=== PATIENT | male | born 1990 | race Caucasian/White ===

== ENCOUNTER 2017-09-07 12:31 | Observation (INO) | payer OTHER ==
[~2017-09-07 12:31] MED LIST: SEROQUEL 100MG100 MG PO
--- NOTE | 2017-09-07 12:51 | ED GENERAL ADULT ---
History of Present Illness General Chief Complaint: ETOH/Drug Related Complaint Stated Complaint: TOOK 17 GABAPENTIN 600MG WACH Source: patient, family (mom/dad) Exam Limitations: clinical condition, intoxication Vital Signs & Intake/Output Vital Signs & Intake/Output Vital Signs Date Time Temp Pulse Resp B/P B/P Pulse O2 O2 Flow FiO2 Mean Ox Delivery Rate 09/08 0847 98.7 92 20 149/67 100 Room Air 09/08 0632 98.3 83 18 106/57 98 Room Air 09/08 0408 97.7 69 18 117/53 100 Room Air 09/08 0020 97.7 69 18 120/70 98 Room Air 09/07 2204 97.6 87 18 130/69 97 Room Air 09/07 2022 97.5 84 18 134/71 99 Room Air 09/07 1653 97.1 95 18 136/73 98 Room Air 09/07 1652 98.1 96 18 140/81 100 Room Air Room Air 09/07 1420 97.1 69 18 109/58 99 Room Air Room Air 09/07 1338 77 18 115/65 99 Room Air Room Air 09/07 1308 98 Room Air Room Air 09/07 1259 98.1 130 18 139/90 98 Room Air Room Air ED Intake and Output 09/08 0000 09/07 1200 Intake Total 1240 Output Total 600 Balance 640 Intake, IV 1000 Intake, Oral 240 Output, Urine 600 Patient 195 lb Weight Weight Reported by Patient Measurement Method Allergies Coded Allergies: NO KNOWN ALLERGIES (08/13/11) Reconcile Medications Quetiapine Fumarate (Seroquel) 100 MG TABLET 1 TAB PO QPM ANXIETY Triage Nurses Notes Reviewed? yes Onset: Abrupt Duration: day(s): (1), constant, continues in ED, getting worse Timing: single episode today Injury Environment: home Severity: moderate, severe No Modifying Factors: none HPI: 27-year-old male past medical history of opioid use disorder brought in by a months for possible drug overdose. Patient's mom reports that the patient is currently taking 40 mg of methadone daily. He is in process of tapering his methadone down and was prescribed 6600 mg gabapentin to help with anxiety and withdrawal symptoms. Patient was observed this morning by his parents active and very lethargic and slurring his words. It was determined that 17 of his gabapentin's were missing. Patient admits to taking more gabapentin then directed but is not very clear exactly how many he took. He also admits to taking 2MG Xanax. He denies any suicidal or homicidal ideation. No alcohol abuse. No history of withdrawal seizures. History is limited because of his intoxication. He denies any pain. No hallucinations. He does report associated anxiety. (Terrence Chatterjee) Past History Medical History Any Pertinent Medical History? see below for history Neurological: NONE EENT: NONE Cardiovascular: NONE Respiratory: NONE Gastrointestinal: NONE Hepatic: NONE Renal: NONE Surgical History Surgical History: N Psychosocial History What is your primary language Chinese Family History Hx Contributory? No (Terrence Chatterjee) Review of Systems Review of Systems Constitutional: Reports: weakness. EENTM: Reports: no symptoms. Respiratory: Reports: no symptoms. Cardiovascular: Reports: no symptoms. GI: Reports: no symptoms. Genitourinary: Reports: no symptoms. Musculoskeletal: Reports: no symptoms. Skin: Reports: no symptoms. Neurological/Psychological: Reports: see HPI, anxiety, emotional problems. Hematologic/Endocrine: Reports: no symptoms. Immunologic/Allergic: Reports: no symptoms. All Other Systems: Reviewed and Negative (Terrence Chatterjee) Physical Exam Physical Exam General Appearance: well developed/nourished, no apparent distress, alert, awake , lethargic, intoxicated Head: atraumatic, normal appearance Eyes: Bilateral: normal appearance, PERRL, EOMI, other (SLUGGISH PUPILS). Ears, Nose, Throat: normal pharynx, normal ENT inspection, hearing grossly normal Neck: normal inspection, supple, full range of motion Respiratory: normal breath sounds, chest non-tender, no respiratory distress, lungs clear Cardiovascular: regular rate/rhythm, normal peripheral pulses Peripheral Pulses: 2+ radial (R), 2+ radial (L) Gastrointestinal: normal bowel sounds, soft, non-tender, no organomegaly Back: normal inspection, normal range of motion, no vertebral tenderness Extremities: normal inspection, normal range of motion, no edema Neurologic/Psych: no motor/sensory deficits, awake, alert, oriented x 3, PATIENT IS LETHARGIC BUT IS AROUSABLE TO VERBAL COMMANDS. hE IS ALERT AND ORIENTED 3. hE IS ALSO SLURRING HIS WORDS BUT IS ABLE TO HOLD A CONVERSATION Skin: intact, normal color, warm/dry Core Measures ACS in differential dx? No CVA/TIA Diagnosis: No Sepsis Present: No Sepsis Focused Exam Completed? No (Bong CRUZ,Terrence) Progress Differential Diagnoses I considered the following diagnoses in my evaluation of the patient: [Drug intoxication, drug overdose, drug withdrawal, electrolyte abnormality] Plan of Care: Orders Procedure Date/time Status Regular Diet 09/08 B Active Continuous Observation Monitor 09/08 1900 Active Continuous Observation Monitor 09/08 1500 Active Continuous Observation Monitor 09/08 1100 Active Discharge Patient 09/08 0853 Active Continuous Observation Monitor 09/08 0700 Active COMPREHENSIVE METABOLIC PANEL 09/08 0400 Complete Continuous Observation Monitor 09/08 0034 Active Saline Lock 09/[address] in observation 09/07 2137 Active Misc Message 09/07 2137 Active ED Holding Orders 09/07 2137 Active Patient Data 09/07 2137 Active Vital Signs 09/07 2137 Active Code Status 09/07 2137 Active ED CRISIS PSYCH CONSULT 09/07 2135 Active ACETOMINOPHEN 09/07 1723 Complete Add-on Test (ER Only) 09/07 1648 Active PARTIAL THROMBOPLASTIN TIME 09/07 1310 Complete PROTHROMBIN TIME 09/07 1310 Complete Intake & Output 09/07 1258 Active EKG 09/07 1247 Active URINE DRUG SCREEN FOR ER ONLY 09/07 1246 Complete URINALYSIS 09/07 1246 Complete ACETOMINOPHEN 09/07 1246 Complete TROPONIN LEVEL 09/07 1246 Complete SALICYLATE 09/07 1246 Complete MAGNESIUM 09/07 1246 Complete ETHANOL 09/07 1246 Complete COMPREHENSIVE METABOLIC PANEL 09/07 1246 Complete CREATINE PHOSPHOKINASE 09/07 1246 Complete CBC WITHOUT DIFFERENTIAL 09/07 1246 Complete Current Medications Sig/Kecia Start time Last Medication Dose Stop Time Status Admin Acetylcysteine 1,500 MG ONCE ONE 09/07 1730 CAN (Acetadote) 09/07 1832 Dextrose/Water 200 ML (D5W) Laboratory Tests 09/08/17 0352: Anion Gap 10, Estimated GFR > 60, BUN/Creatinine Ratio 13.3, Glucose 88, Calcium 9.4, Total Bilirubin 0.3, AST 61 H, ALT 78 H, Alkaline Phosphatase 60, Total Protein 6.4, Albumin 3.8, Globulin 2.6, Albumin/Globulin Ratio 1.5 09/07/17 1730: Acetaminophen < 10.0 L 09/07/17 1530: Urine Opiates Screen < 100.00, Methadone Screen > 735 H, Barbiturate Screen < 60, Ur Phencyclidine Scrn < 6.00, Amphetamines Screen < 100, U Benzodiazepines Scrn > 800 H, Urine Cocaine Screen < 50, Urine Cannabis Screen < 5.00, Urine Color YEL, Urine Clarity CLEAR, Urine pH 6.0, Ur Specific [place] 1.010, Urine Protein NEG, Urine Ketones NEG, Urine Nitrite NEG, Urine Bilirubin NEG, Urine Urobilinogen 0.2, Ur Leukocyte Esterase NEG, Ur Microscopic EXAM NOT REQUIRED, Urine Hemoglobin NEG, Urine Glucose NEG 09/07/17 1310: Anion Gap 16, Estimated GFR > 60, BUN/Creatinine Ratio 13.8, Glucose 107 H, Calcium 10.4 H, Magnesium 1.7, Total Bilirubin 0.4, AST 78 H, ALT 98 H, Alkaline Phosphatase 65, Creatine Kinase 798 H, Troponin I < 0.01, Total Protein 8.2, Albumin 5.0, Globulin 3.2, Albumin/Globulin Ratio 1.6, PT 11.4, INR 1.09, APTT 29, CBC w Diff NO MAN DIFF REQ, RBC 4.90, MCV 86.5, MCH 29.5, MCHC 34.2, RDW 13.2, MPV 9.1, Gran % 69.1, Lymphocytes % 20.2 L, Monocytes % 9.6 H, Eosinophils % 0.7, Basophils % 0.4, Absolute Granulocytes 6.9 H, Absolute Lymphocytes 2.0, Absolute Monocytes 1.0 H, Absolute Eosinophils 0.1, Absolute Basophils 0, Salicylates < 1.0, Acetaminophen < 10.0 L, Serum Alcohol < 10.0 Patient seen and evaluated. He currently is intoxicated slurring his words. He admits to taking an overdose of gabapentin as well as taking Xanax and methadone 40 mg today. Patient goes to the methadone clinic in [place] he is unsure the name of it. Spoke with poison control at 1250. They recommend supportive care and monitoring for a minimum of 4-6 hours. We'll check basic labs and EKG. He is mildly tachycardic he'll be given fluids. Blood work is back and shows mildly elevated liver function tests as well as elevated levels of methadone and benzodiazepines. Normal BUN and creatinine. Spoke with poison control about the elevated liver function tests. They are concerned about a possible Tylenol overdose. A 4 hour repeat Tylenol was checked and was negative. Patient will have an additional Tylenol level checked at 4 AM along with LFTs. If Tylenol is positive or if LFTs continue to rise will be treated with NAC. Case discussed with Dr. Marquez he agrees. he continues to wake up and was able to walk to the bathroom he is doing much better. He is alert and oriented 3. Vital signs stable. Patient be held over in the emergency department for ED observation for the repeat labs. He'll also see crisis in the morning. She signed to Dr. Marquez pending crisis evaluation and repeat labs. Initial ED EKG: normal sinus rhythm (RATE 97), LEFT ATRIAL ABN Hand-Off Endorsed To: Gunnar Marquez MD Endorsed Time: 2300 Pending: consult (CRISIS), labs (Terrence Chatterjee) Differential Diagnoses I considered the following diagnoses in my evaluation of the patient: Hand-Off Endorsed To: Willem Wiley MD Endorsed Time: 0700 Pending: consult, labs (Gunnar Marquez MD) Comments: Cleared by psychiatry for discharge (Willem Wiley MD) Departure Departure Condition: Stable Clinical Impression Primary Impression: Drug overdose, multiple drugs Qualifiers: Encounter type: initial encounter Injury intent: undetermined intent Qualified Code: T50.904A - Poisoning by unspecified drugs, medicaments and biological substances, undetermined, initial encounter Referrals: Gonzalo Yao MD (PCP/Family) (Terrence Chatterjee) PA/ADVANCED MANUFACTURING CONSULTANT Co-Sign Statement Statement: ED Attending supervision documentation- [x] I saw and evaluated the patient. I have also reviewed all the pertinent lab results and diagnostic results. I agree with the findings and the plan of care as documented in the PA's/ADVANCED MANUFACTURING CONSULTANT's documentation. 09/07/17, 19:45.... pt with likely polysubstance overdose, denies SI.... per poison control, merits repeat lft's. pt to be held until the AM for labs and will need to see crises team. [] I have reviewed the ED Record and agree with the PA's/ADVANCED MANUFACTURING CONSULTANT's documentation. [] Additions or exceptions (if any) to the PAs/ADVANCED MANUFACTURING CONSULTANT's note and plan are summarized below: [] (Gunnar Marquez MD) Departure Time of Disposition: 0853 Disposition: HOME OR SELF CARE Additional Instructions: Follow up with the recommendations of the pharmaceutical worker Departure Forms: General Discharge Information PA/ADVANCED MANUFACTURING CONSULTANT Co-Sign Statement Statement: ED Attending supervision documentation- x I saw and evaluated the patient. I have also reviewed all the pertinent lab results and diagnostic results. I agree with the findings and the plan of care as documented in the PA's/ADVANCED MANUFACTURING CONSULTANT's documentation. [] I have reviewed the ED Record and agree with the PA's/ADVANCED MANUFACTURING CONSULTANT's documentation. [] Additions or exceptions (if any) to the PAs/ADVANCED MANUFACTURING CONSULTANT's note and plan are summarized below: [] (Willem Wiley MD) Critical Care Note Critical Care Note Critical Care Time: non-applicable (Terrence Chatterjee) ED Attending Observation Initial Observation Note: I have seen and personally examined OSIRIS SÁNCHEZ on 09/07/17 at 2147. I agree with the current emergency department documentation. The disposition (admission or discharge) is uncertain at this time, he needs a period of observation for the following reason(s): 09/07/17, 19:45.... pt with likely polysubstance overdose, denies SI.... per poison control, merits repeat lft's. pt to be held until the AM for labs and will need to see crises team. The ED Nurse caring for this patient has been personally informed as to what the patient is being observed for. Observation Re-Evaluation: I have reevaluated OSIRIS SÁNCHEZ on 09/08/17 at 0620. The physical findings that support the continued need to observe this patient include .pt comfortable in ED... awaits crises this AM. pt signed out to dr. wiley at 7am. (Alma FAYE,Gunnar Fishman) Observation Discharge: I have reevaluated OSIRIS SÁNCHEZ on 09/08/17 at 0854. The patient is: (x): Stable for discharge (): To be admitted to Nursing Floor (): To be placed in Observation on Nursing Floor (): For transfer to other facility The patient was being observed for overdose As a result of that observation, I have determined safe for discharge. (Willem Wiley MD)
[2017-09-07 13:24] LABS: ABSOLUTE BASOPHIL COUNT 0 /CUMM (0.0-0.2); ABSOLUTE EOSINOPHIL COUNT 0.1 /CUMM (0.0-0.7); ABSOLUTE GRANULOCYTE CT 6.9 /CUMM (1.4-6.5); BASOPHIL % 0.4 % (0.0-2.0); EOSINOPHIL % 0.7 % (0-5); GRANULOCYTE % 69.1 % (42.2-75.2); HEMATOCRIT 42.4 % (42-52); MEAN CORPUSCULAR HGB 29.5 PG (27.0-31.0); MEAN CORPUSCULAR HGB CONC 34.2 G/DL (33.0-37.0); MEAN CORPUSCULAR VOLUME 86.5 FL (80.0-94.0); MEAN PLATELET VOLUME 9.1 FL (7.4-10.4); PLATELET COUNT 316 /CUMM (130-400); RBC DISTRIBUTION WIDTH 13.2 % (11.5-14.5); WHITE BLOOD CELL COUNT 10.1 /CUMM (4.8-10.8)
[2017-09-07 17:12] LABS: PT 11.4 SEC (9.4-12.5); PTT 29 SEC (25-37)
[2017-09-08 08:47] VITALS: BP 149/67
--- NOTE | 2017-09-08 09:07 | ED PSYCH CRISIS CONSULTATION ---
Crisis Consult Basic Assessment Date of Consult: 09/08/17 Responsible Person/Accompanied By: self Insurance Authorization: Insurance #1: Insurance name: SELF-PAY Phone number: Policy number: Group number: Authorization number: ED Provider: Patient's ED Provider: Willem Wiley MD Primary Care Physician: Patient's PCP: Gonzalo Yao MD PCP's Current Psychiatrist: Dr. Richard Chief Complaint: ETOH/Drug Related Complaint Patient's Quote: "I dont remember too much" Present Illness: Patient is a 27 year old White male presenting in the ED post Xanax intoxication. Patient initially presented to the ED reporting he had overdosed on Gabapentin and was not medically cleared for crisis to see until this morning. Patient is currently in the process of being tapered off Methadone from a heroin use. Patient currently is prescribed Methadone 40 mg daily which he recieves from the [facility] in [place], [place]. Patient reports he see Dr. Richard in [place] who also prescribes Gabepentin 600 mg to help with the anxiety of the Methadone taper. Pt reports he was heroin user for the last 4 years with the last 2 years being IV (typically 4-5 bundles at times up to 6-7 bundles). Pt reports the plan is that once he is off the Methadone he will recieve the Vivitrol shot and treatment from [facility], where Dr. Richard practices. Pt reports Dr. Richard would not prescribe the patient benzodiazepams as heroin and benzodiazepams were the patients drug of choice. Pt reports Dr. Richard is prescribing Gabepentin for anxiety related to tapering off Methadone. Pt reports he was very anxious about the taper and bought xanax off the street. Pt thought he bought "a couple of pressed bars". He reports he thought they were 2 mg each and green so he thought they were "real". He said once he "ate" them he realized they didn't taste right and they were not from a pharmacy. He reports he bought 4 bars and took 3 on night and 1 Sunday morning. Pt reports he doesn't remember telling the ED doctors that he overdosed on Gabepentin but thinks he said that because he didn't want to admit to buying xanax and taking xanax. Pt denies this overdose was intentional or a suicide attempt. Pt denies any SI past or present; denies HI past or present; denies AH/ VH past or present. Pt has no history of mental health treatment, only substanec abuse treatment. [place] and [place]. He was in [place] 1.5 years ago which he found helpful. Patient was advised to not use benzodiazepams. Crisis spoke to patient's roomomate Abram ([phone]) who reports that the patient has been doing well since he has been living with him for the last year. He said he has known the pt for the last ten years. Abram reports he will be able to pick the patient up and take him to get his Methadone dose today before the center closes at 10:30 a.m. Unable to speak with patient's parents. Phone goes straight to [facility] without ringing. Pt reports his parents are on a plane on their way to [place] for a trip. Crisis consulted with Dr. Klarissa White and ED physician, Dr. Wiley. Pt will be discharged home to follow up with treatment with Dr. Richard and [facility]. Patient's Address: [address] [place] [address] Other Phone Number: Who Do You Live With? Friend Family/Informants Interviewed: spoke to roommate Abram [phone] Allergies - Coded Allergies: NO KNOWN ALLERGIES (08/13/11) Current Medications - Scheduled Medications Quetiapine Fumarate (Seroquel) 100 MG TABLET 1 TAB PO QPM ANXIETY #14 TAB Prescribed by Verónica Sosa MD on 03/15/15 Laboratory Results: Laboratory Tests 09/08/17 0352: Anion Gap 10, Estimated GFR > 60, BUN/Creatinine Ratio 13.3, Glucose 88, Calcium 9.4, Total Bilirubin 0.3, AST 61 H, ALT 78 H, Alkaline Phosphatase 60, Total Protein 6.4, Albumin 3.8, Globulin 2.6, Albumin/Globulin Ratio 1.5 09/07/17 1730: Acetaminophen < 10.0 L 09/07/17 1530: Urine Opiates Screen < 100.00, Methadone Screen > 735 H, Barbiturate Screen < 60, Ur Phencyclidine Scrn < 6.00, Amphetamines Screen < 100, U Benzodiazepines Scrn > 800 H, Urine Cocaine Screen < 50, Urine Cannabis Screen < 5.00, Urine Color YEL, Urine Clarity CLEAR, Urine pH 6.0, Ur Specific [place] 1.010, Urine Protein NEG, Urine Ketones NEG, Urine Nitrite NEG, Urine Bilirubin NEG, Urine Urobilinogen 0.2, Ur Leukocyte Esterase NEG, Ur Microscopic EXAM NOT REQUIRED, Urine Hemoglobin NEG, Urine Glucose NEG 09/07/17 1310: Anion Gap 16, Estimated GFR > 60, BUN/Creatinine Ratio 13.8, Glucose 107 H, Calcium 10.4 H, Magnesium 1.7, Total Bilirubin 0.4, AST 78 H, ALT 98 H, Alkaline Phosphatase 65, Creatine Kinase 798 H, Troponin I < 0.01, Total Protein 8.2, Albumin 5.0, Globulin 3.2, Albumin/Globulin Ratio 1.6, PT 11.4, INR 1.09, APTT 29, CBC w Diff NO MAN DIFF REQ, RBC 4.90, MCV 86.5, MCH 29.5, MCHC 34.2, RDW 13.2, MPV 9.1, Gran % 69.1, Lymphocytes % 20.2 L, Monocytes % 9.6 H, Eosinophils % 0.7, Basophils % 0.4, Absolute Granulocytes 6.9 H, Absolute Lymphocytes 2.0, Absolute Monocytes 1.0 H, Absolute Eosinophils 0.1, Absolute Basophils 0, Salicylates < 1.0, Acetaminophen < 10.0 L, Serum Alcohol < 10.0 Past History Past Medical History Neurological: NONE EENT: NONE Cardiovascular: NONE Respiratory: NONE Gastrointestinal: NONE Hepatic: NONE Renal: NONE Musculoskeletal: NONE Psychiatric: opioid dependence Endocrine: NONE Blood Disorders: NONE Cancer(s): NONE Past Surgical History Surgical History: none Psychosocial History Strengths/Capabilities: pt has a supportive roommate pt is employed through [employer] pt is working with Dr. Richard for Methadone taper Physical Limitations (Interventions): none observed Psychiatric Treatment History Psych Treatment Psychiatric Treatment No Inpatient Treatment No Outpatient Treatment No Diagnosis by History: Opiate Dependance Substance Use/Abuse History Drug Use/Abuse 1 Substances Used/Abused Yes Substance Used/Abused Prescribed Opiates First Use 2016 Last Used 09/07/17 How much used/taken prescribed 40 mg Methadone How often daily For how long July 31, 2017 Route of use oral Drug Use/Abuse 2 Substances Used/Abused Yes Substance Used/Abused Benzodiazepines First Use several years ago Last Used 09/07/17 How much used/taken "3 bars" on evening of 09/06 and "1 dove 09/07/17 How often before this time, may/jun 2017 For how long pt reports his drug of choice as benzos and heroin Route of use oral Drug Use/Abuse 3 Substances Used/Abused Yes Substance Used/Abused Alcohol First Use unsure Last Used May 2017 How much used/taken varied How often varied For how long on and off Route of use oral Drug Use/Abuse 4 Substances Used/Abused Yes Substance Used/Abused Marijuana First Use unk Last Used 05/2017 How much used/taken varied How often varied For how long unk Route of use inhale Drug Use/Abuse 5 Substances Used/Abused Yes Substance Used/Abused Other (list in comments) (Rebecca ) First Use 21/22 years old Last Used unk How much used/taken unk How often unk For how long unk Drug Use/Abuse 6 Substances Used/Abused Yes Substance Used/Abused Heroin First Use 23 Last Used 07/30/17 How much used/taken 4-5 bundles How often daily For how long 4 years total Route of use last two years was IV use Substance Abuse Treatment Substance Abuse Treatment Past Substance Abuse TX Yes Inpatient Treatment Yes Outpatient Treatment Yes [facility] Reason for Treatment polysubstance abuse Dates of Treatment Rehab 2012 & 2014, IOP 2016; Current at [facility] & Dr. Mead Response to Treatment fair, has had period of sobreity. no ETOH or Marijuana since May, coming up on 100 days sober from ETOH and Marijuana Current Mental Status Mental Status Orientation: Person, Place, Situation Affect: Anxious Speech: WNL Neuro-vegetative: Sleep Disturbance Appearance Appearance- Dress/Hygiene: pt presented in hospital attire, no remarkable features Behaviors Thought Process: WNL Thought Content: WNL Memory: Impaired (unsure of yesterday's events) Insight: Fair SI/HI Risk Assessment Past Suicidal Ideation/Attempts No Current Suicidal Ideation/Att No Past Homicidal Ideation/Att: No Current Homicidal Ideation/Attempts No Risk Factors: substance abuse, poor impulse control, male Lethality Ratin PTSD Checklist PTSD Done? 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 Klarissa Trevino Date Disposition Established: 09/08/17 Time Disposition Established: 834 Plan for Disposition - Modality: Methadone Maint. & Psychiatrist Facility: [facility] Follow-up Appt Date: 09/08/17 Follow-Up Appt Time: 1030 Contact: [facility] Rationale for Disposition: Pt presented in ED with what turned out being xanax intoxication/overdose vs Gabepentin overdose. Pt takes methadone and is working towards tapering off to start Vivitrol injection. Pt reports the injestion of xanax was to handle anxiety related to being tapered off methadone and worrying about being "dope sick". Pt denies this was a suicide attempt. Pt denies SI/HI/AH/VH. Pt has been attending [facility] regularly per roommate for Methadone. Pt is active with Dr. Richard at [facility] as well. Referrals Maximilian FAYE,Gonzalo Fonseca (PCP/Family)
== END 2017-09-08 09:31 ==
LOC: ERH 12:31 → ERHI 21:38 → EDBEDREQ 09-08 04:28 → ERHI 09-08 09:16
PROVIDERS: Physician Assistant Medical
DX: T42.6X1A Poisoning by other antiepileptic and sedative-hypnotic drugs, accidental (unintentional), initial encounter (principal); T42.4X1A Poisoning by benzodiazepines, accidental (unintentional), initial encounter; F41.9 Anxiety disorder, unspecified; R53.1 Weakness; F11.229 Opioid dependence with intoxication, unspecified; R00.0 Tachycardia, unspecified
CPT/HCPCS: 80307; 81003; 93005; 93010; 96361; 96374; G0463; G0480; J0132; J7060